=== PATIENT | female | born 1990 | race African-American/Black ===

== ENCOUNTER 2016-10-02 22:05 | Emergency (ER) | payer SELFPAY ==
[~2016-10-02] VITALS: Ht 160 cm; Wt 57.2 kg
[2016-10-02 22:23] VITALS: TEMP 98.7
[2016-10-02 23:23] LABS: PH 5 (5-8); URINE APPEARANCE Hazy; URINE BACTERIA None Seen /hpf; URINE BILIRUBIN Negative (NEGATIVE); URINE BLOOD Negative (NEGATIVE); URINE COLOR Yellow; URINE GLUCOSE Negative (NEGATIVE); URINE KETONE 2+ (NEGATIVE); URINE RBC 0-2 /hpf; URINE UROBILINOGEN Negative (NEGATIVE)
[2016-10-02 23:40] LABS: HEMATOCRIT 42.2 % (37.0-47.0); HEMOGLOBIN 13.7 g/dl (12.5-16.0); MEAN CELL VOLUME 88 fl (80.0-100.0); MEAN CORPUSCULAR HEMOGLOBIN 29 pg (27.0-31.0); MEAN CORPUSCULAR HGB CONC 33 g/dl (33.0-37.0); MEAN PLATELET VOLUME 10.2 fl (7.4-10.4); PLATELET COUNT 272 K/mm3 (130-400); RED BLOOD COUNT 4.81 M/mm3 (4.10-5.30); REDCELL DISTRIBUTION WIDTH-CV 12.4 % (11.5-14.5); WHITE BLOOD COUNT 4.8 K/mm3 (4.8-10.8)
[2016-10-02 23:41] LABS: ADD PATHOLOGY DIFF REVIEW NO
[2016-10-02 23:53] LABS: ADJUSTED CALCIUM 8.6 mg/dL (8.4-10.2); ALBUMIN 4.3 gm/dL (3.5-5.0); BILIRUBIN,TOTAL 1.1 mg/dL (0.0-1.0); C-REACTIVE PROTEIN 0.9 mg/dL (0.0-0.9); CALCIUM 8.8 mg/dL (8.4-10.2); CREATININE, serum 0.72 mg/dL (0.52-1.25); POTASSIUM 3.8 mmol/L (3.4-5.0); TOTAL PROTEIN 7.7 gm/dL (6.4-8.2)
[2016-10-03 00:23] LABS: BAND 10 % (0-10); NEUTROPHILS 71 % (42.0-75.2); PLATELET ESTIMATE NORMAL (NORMAL); TOTAL CELLS COUNTED 100
[2016-10-03] MEDS ORDERED: ZOFRAN 4MG T4 MG/TAB PO (00:31)
[2016-10-03 00:50] VITALS: BP 100/79; PULSE 89
== END 2016-10-03 01:03 | disposition home or self-care (01) ==
LOC: COL.ER 22:05
PROVIDERS: Emergency Medicine
DX: R11.10 Vomiting, unspecified (principal); R19.7 Diarrhea, unspecified; R10.84 Generalized abdominal pain
CPT/HCPCS: J2270; J2405; J2550; J7030

== ENCOUNTER 2017-07-10 08:39 | Emergency (ER) | payer SELFPAY ==
[~2017-07-10] VITALS: Ht 160 cm; Wt 56.5 kg
[~2017-07-10 08:39] MED LIST: ZOFRAN 4MG T4 MG/TAB PO
[2017-07-10 08:49] VITALS: TEMP 98.2
[2017-07-10 09:06] LABS: COLLECTION METHOD CLEAN CATCH
[2017-07-10 09:17] LABS: MUCOUS Present /lpf; PH 5 (5-8); URINE APPEARANCE Hazy; URINE BACTERIA None Seen /hpf; URINE BILIRUBIN Negative (NEGATIVE); URINE BLOOD 2+ (NEGATIVE); URINE COLOR Yellow; URINE GLUCOSE Negative (NEGATIVE); URINE KETONE Trace (NEGATIVE); URINE LEUKOCYTE ESTERASE Negative (NEGATIVE); URINE NITRATE Negative (NEGATIVE); URINE PROTEIN(semi-quant) Negative (NEGATIVE); URINE UROBILINOGEN Negative (NEGATIVE)
[2017-07-10 09:53] LABS: BASO % 0.2 % (0.0-2.0); EOS # 0.2 (0.0-0.7); EOS % 1.6 % (0-4.0); GRAN # 8.2 (1.4-6.5); GRAN % 83.3 % (42.2-75.2); HEMATOCRIT 42.3 % (37.0-47.0); HEMOGLOBIN 14.1 g/dl (12.5-16.0); LYMPH # 0.7 (1.2-3.4); MEAN CELL VOLUME 89 fl (80.0-100.0); MEAN CORPUSCULAR HEMOGLOBIN 30 pg (27.0-31.0); MEAN CORPUSCULAR HGB CONC 33 g/dl (33.0-37.0); MEAN PLATELET VOLUME 9.8 fl (7.4-10.4); MONO # 0.8 (0.1-0.6); MONO % 7.7 % (1.7-9.3); PLATELET COUNT 285 K/mm3 (130-400); RED BLOOD COUNT 4.77 M/mm3 (4.10-5.30); REDCELL DISTRIBUTION WIDTH-CV 11.8 % (11.5-14.5)
[2017-07-10 10:06] LABS: ALANINE AMINOTRANSFERASE 22 U/L (9-52); ALBUMIN 4.5 gm/dL (3.5-5.0); ALKALINE PHOSPHATASE 73 U/L (50-136); ANION GAP 15 mmol/L (7-16); AST,SGOT 23 U/L (15-37); BILIRUBIN,TOTAL 0.9 mg/dL (0.0-1.0); BLOOD UREA NITROGEN 20 mg/dL (7-17); CALCIUM 9.5 mg/dL (8.4-10.2); CARBON DIOXIDE 21 mmol/L (22-30); CHLORIDE 105 mmol/L (98-107); CREATININE, serum 0.82 mg/dL (0.52-1.25); GLUCOSE 95 mg/dL (74-106); SODIUM 141 mmol/L (137-145); TOTAL PROTEIN 8.9 gm/dL (6.4-8.2)
[2017-07-10 10:08] LABS: C-REACTIVE PROTEIN < 0.5 mg/dL (0.0-0.9)
[2017-07-10] MEDS ORDERED: ZOFRAN ODT4 MG PO (10:33)
[2017-07-10 11:07] VITALS: BP 111/67; PULSE 82
== END 2017-07-10 11:06 | disposition home or self-care (01) ==
LOC: COL.ER 08:39
PROVIDERS: Physician Assistant
DX: R11.2 Nausea with vomiting, unspecified (principal); R19.7 Diarrhea, unspecified; Z80.42 Family history of malignant neoplasm of prostate; Z84.1 Family history of disorders of kidney and ureter
CPT/HCPCS: J2405; J7030

== ENCOUNTER 2018-06-15 23:01 | Emergency (ER) | payer SELFPAY ==
[~2018-06-15] VITALS: Ht 160 cm; Wt 59.5 kg
[~2018-06-15 23:01] MED LIST changes: +ZOFRAN ODT4 MG PO
[2018-06-16 01:24] LABS: BASO # 0.1 (0.0-0.2); BASO % 0.6 % (0.0-2.0); EOS # 0.3 (0.0-0.7); EOS % 3.5 % (0-4.0); GRAN # 3.6 (1.4-6.5); GRAN % 46.8 % (42.2-75.2); HEMOGLOBIN 12.2 g/dl (12.5-16.0); LYMPH # 2.9 (1.2-3.4); LYMPH % 37.9 % (20.0-51.0); MEAN CELL VOLUME 92 fl (80.0-100.0); MEAN CORPUSCULAR HEMOGLOBIN 30 pg (27.0-31.0); MEAN CORPUSCULAR HGB CONC 33 g/dl (33.0-37.0); MEAN PLATELET VOLUME 9.9 fl (7.4-10.4); MONO # 0.9 (0.1-0.6); MONO % 11.1 % (1.7-9.3); PLATELET COUNT 308 K/mm3 (130-400); RED BLOOD COUNT 4.02 M/mm3 (4.10-5.30); REDCELL DISTRIBUTION WIDTH-CV 11.5 % (11.5-14.5)
[2018-06-16 01:32] LABS: HEMATOCRIT 36.8 % (37.0-47.0)
[2018-06-16 01:36] LABS: ALBUMIN 3.7 gm/dL (3.5-5.0); BILIRUBIN,TOTAL 0.4 mg/dL (0.0-1.0); C-REACTIVE PROTEIN 0.7 mg/dL (0.0-0.9); CREATININE, serum 0.71 (0.52-1.25); POTASSIUM 3.8 mmol/L (3.4-5.0); TOTAL PROTEIN 6.9 gm/dL (6.4-8.2)
[2018-06-16 01:51] LABS: ERYTHROCYTE SEDIMENTATION RATE 11 mm/hr (0-20)
[2018-06-16 05:09] LABS: COLLECTION METHOD CLEAN CATCH
[2018-06-16 05:18] LABS: MUCOUS Present /lpf; PH 6 (5-8); SQUAMOUS EPITHELIAL 0-2 /hpf; URINE APPEARANCE Clear; URINE BACTERIA Rare /hpf; URINE BILIRUBIN Negative (NEGATIVE); URINE BLOOD Negative (NEGATIVE); URINE COLOR Yellow; URINE GLUCOSE Negative (NEGATIVE); URINE KETONE Negative (NEGATIVE); URINE LEUKOCYTE ESTERASE Negative (NEGATIVE); URINE NITRATE Negative (NEGATIVE); URINE PROTEIN(semi-quant) Negative (NEGATIVE); URINE RBC 0-2 /hpf; URINE UROBILINOGEN Negative (NEGATIVE)
[2018-06-16 05:50] VITALS: TEMP 98.9
[2018-06-16] MEDS ORDERED: FIORICET 325 MG1 TA1 PO (08:46)
[2018-06-16 08:59] VITALS: BP 100/59; PULSE 61
== END 2018-06-16 09:01 | disposition home or self-care (01) ==
LOC: COL.ER 23:01
PROVIDERS: Emergency Medicine
DX: R51 Headache (principal)
CPT/HCPCS: A9585; J1200; J1885; J2550; J7030